=== PATIENT | female | born 1965 | race Caucasian/White ===

== ENCOUNTER → 2016-09-24 | Outpatient (CLI) | payer OTHER | LOC: FIMAGING 09:40 | PROVIDERS: ATTEND Family Medicine | DX: R17 Unspecified jaundice (principal); Z85.00 Personal history of malignant neoplasm of unspecified digestive organ ==

== ENCOUNTER → 2017-04-02 | Outpatient (CLI) | payer OTHER | LOC: BMCIMAGING 09:24 | PROVIDERS: ATTEND Family Medicine | DX: K76.89 Other specified diseases of liver (principal); R17 Unspecified jaundice; Z80.6 Family history of leukemia ==

== ENCOUNTER → 2017-10-30 | Outpatient (CLI) | payer OTHER | LOC: FIMAGING 09:10 | PROVIDERS: ATTEND Family Medicine | DX: K76.9 Liver disease, unspecified (principal); Z12.31 Encounter for screening mammogram for malignant neoplasm of breast ==